=== PATIENT | female | born 1990 | race Two or more races ===

== ENCOUNTER 2021-10-21 17:44 | Inpatient (IN) | payer MEDICAID ==
[~2021-10-21] VITALS: Ht 167.6 cm; Wt 180.1 kg
[2021-10-21] MEDS ORDERED: NITROGLYCERIN 50MG PREMIX 250 ML IV ONE (18:00)
[2021-10-21] MEDS ORDERED: FUROSEMIDE 100MG/10ML VIAL IVP ONE (18:00)
[2021-10-21 18:50] LABS: BASOPHILS % 0.9 % (0.0-2.0); CHLORIDE 106 mEq/L (98-107); EOSINOPHILS % 5.8 % (0.0-5.0); HEMATOCRIT. 39.4 % (36.0-48.0); HEMOGLOBIN. 11.9 g/dL (12.0-16.0); LYMPHOCYTES % 17.9 % (20.0-50.0); MEAN CORPUSCULAR HEMOGLOBIN 25.5 pg (28.0-32.0); MEAN CORPUSCULAR VOLUME 84.1 fL (81.0-99.0); MEAN PLATELET VOLUME 9.9 fl (7.4-10.4); MONOCYTES % 7.5 % (2.0-8.0); NEUTROPHILS % 67.9 % (40.0-76.0); PLATELET 166 x1000/uL (130-400); RED BLOOD CELL COUNT 4.69 mill/uL (4.2-5.4); RED CELL DISTRIBUTION WIDTH 15.1 % (11.6-14.6)
[2021-10-21] MEDS ORDERED: CLONIDINE 0.3MG TABLET PO ONE (20:45)
[2021-10-21] MEDS ORDERED: ACETAMINOPHEN 325MG TABLET PO PRN ×2 (21:45)
[2021-10-21] MEDS ORDERED: MAGNESIUM/ALUMINUM HYDROXIDE/SIMETHICONE 30ML UDC PO PRN (21:45)
[2021-10-21] MEDS ORDERED: DOCUSATE SODIUM 100MG CAPSULE PO PRN (21:45)
[2021-10-21] MEDS ORDERED: ENOXAPARIN 40MG/0.4ML SYR SUBCUT SCH (21:45)
[2021-10-21] MEDS ORDERED: LORAZEPAM 0.5MG TABLET PO PRN (21:45)
[2021-10-21] MEDS ORDERED: NITROGLYCERIN 0.4MG TABLET SL SL PRN (21:45)
[2021-10-21] MEDS ORDERED: ONDANSETRON HCL 4MG/2ML INJ IV PRN (21:45)
[2021-10-21] MEDS ORDERED: GUAIFENESIN 200MG/10ML SUGAR FREE UDC PO PRN (21:45)
[2021-10-21] MEDS ORDERED: IPRATROPIUM/ALBUTEROL 0.5-3(2.5)MG/3ML NEB NEB PRN (21:45)
[2021-10-21] MEDS ORDERED: CLONIDINE 0.1MG TABLET PO PRN (21:45)
[2021-10-21] MEDS ORDERED: ACETAMINOPHEN 325MG TABLET PO ONE (22:00)
[2021-10-21] MEDS ORDERED: TRAMADOL 50MG TABLET PO ONE (22:00)
[2021-10-21 22:09] LABS: FOLIC ACID (FOLATE) SERUM 15.3 ng/mL (>5.38)
[2021-10-21] MEDS: LISINOPRIL 20MG TABLET PO SCH ×2 (22:28→23:04)
[2021-10-21] MEDS: HYDRALAZINE HCL 50MG TABLET PO SCH ×2 (22:29→23:34)
[2021-10-21 23:36] LABS: ETHANOL BLOOD < 10 mg/dL
[2021-10-21 23:38] LABS: TOTAL IRON BINDING CAPACITY 486 ug/dL (250-450)
[2021-10-21 23:41] LABS: CREATINE KINASE 110 IU/L (26-192)
[2021-10-21 23:42] LABS: CREATINE KINASE MB FRACTION 1.6 ng/mL (0.5-3.6)
[2021-10-21] MEDS ORDERED: HYDRALAZINE 20MG/ML VIAL IV ONE (23:45)
[2021-10-21] MEDS ORDERED: MORPHINE SULFATE 4 MG/ML CPJ (NOT FOR IM USE) IV ONE (23:45)
[2021-10-22 04:15] LABS: BASOPHILS % 0.4 % (0.0-2.0); EOSINOPHILS % 3.5 % (0.0-5.0); HEMATOCRIT. 38.8 % (36.0-48.0); HEMOGLOBIN. 12.2 g/dL (12.0-16.0); LYMPHOCYTES % 13.9 % (20.0-50.0); MEAN PLATELET VOLUME 9.8 fl (7.4-10.4); MONOCYTES % 7.2 % (2.0-8.0); PLATELET 245 x1000/uL (130-400); RED BLOOD CELL COUNT 4.68 mill/uL (4.2-5.4); RED CELL DISTRIBUTION WIDTH 15.1 % (11.6-14.6)
[2021-10-22 04:17] LABS: CHLORIDE 105 mEq/L (98-107)
[2021-10-22 04:24] LABS: PHOSPHORUS 6.1 mg/dL (2.5-4.9)
[2021-10-22 04:27] LABS: CREATINE KINASE 100 IU/L (26-192)
[2021-10-22 05:10] LABS: CREATINE KINASE MB FRACTION 1.4 ng/mL (0.5-3.6)
[2021-10-22] MEDS: AMLODIPINE 10MG TABLET PO SCH ×2 (05:23→09:49)
[2021-10-22] MEDS: NITROGLYCERIN OINT 1GM/INCH UDPKT TD SCH ×4 (05:24→22:00)
[2021-10-22] MEDS: HYDRALAZINE HCL 50MG TABLET PO SCH ×3 (06:38→22:00)
[2021-10-22 08:00] VITALS: BP 123/64
[2021-10-22] MEDS: FUROSEMIDE 40MG/4ML VIAL IVP SCH ×2 (09:48→20:44)
[2021-10-22] MEDS: FAMOTIDINE 20MG TABLET PO SCH ×2 (09:48→20:38)
[2021-10-22] MEDS: ENOXAPARIN 40MG/0.4ML SYR SUBCUT SCH ×2 (09:48→20:39)
[2021-10-22] MEDS: LISINOPRIL 20MG TABLET PO SCH ×2 (09:48→20:39)
[2021-10-22] MEDS: ASPIRIN 325MG EC TABLET PO SCH (09:49)
[2021-10-22] MEDS: SPIRONOLACTONE 25MG TABLET PO SCH ×2 (09:49→20:38)
[2021-10-22 10:21] VITALS: BP 123/64
[2021-10-22] MEDS ORDERED: INFLUENZA VACCINE 05/PF 0.5 ML SYRINGE IM ONE (11:30)
[2021-10-22] MEDS ORDERED: PNEUMOCOCCAL 23-VAL P-SAC VAC 0.5 ML IM ONE (11:30)
[2021-10-22 11:31] VITALS: BP 138/77
[2021-10-22 16:00] VITALS: BP 145/77
[2021-10-22 20:00] VITALS: BP 114/59
[2021-10-23 00:01] VITALS: BP 138/65
[2021-10-23 04:00] VITALS: BP 123/62
[2021-10-23] MEDS: NITROGLYCERIN OINT 1GM/INCH UDPKT TD SCH ×3 (05:30→21:06)
[2021-10-23] MEDS: HYDRALAZINE HCL 50MG TABLET PO SCH ×3 (05:30→21:06)
[2021-10-23 08:10] VITALS: BP 136/72
[2021-10-23] MEDS: FAMOTIDINE 20MG TABLET PO SCH ×2 (09:23→21:06)
[2021-10-23] MEDS: LISINOPRIL 20MG TABLET PO SCH ×2 (09:23→21:06)
[2021-10-23] MEDS: AMLODIPINE 10MG TABLET PO SCH (09:23)
[2021-10-23] MEDS: ASPIRIN 325MG EC TABLET PO SCH (09:23)
[2021-10-23] MEDS: ENOXAPARIN 40MG/0.4ML SYR SUBCUT SCH ×2 (09:24→21:05)
[2021-10-23] MEDS: FUROSEMIDE 40MG/4ML VIAL IVP SCH ×2 (09:24→21:05)
[2021-10-23] MEDS: SPIRONOLACTONE 25MG TABLET PO SCH ×2 (09:24→21:06)
[2021-10-23 12:25] VITALS: BP 125/68
[2021-10-23 16:00] VITALS: BP 122/64
[2021-10-23 20:00] VITALS: BP 133/72
[2021-10-24] VITALS (7 sets, daily range): BP systolic 112–144; BP diastolic 67–90
[2021-10-24] MEDS: ZOLPIDEM TARTRATE 5MG TABLET PO PRN ×2 (01:09→22:00)
[2021-10-24] MEDS: HYDRALAZINE HCL 50MG TABLET PO SCH ×3 (06:59→21:59)
[2021-10-24] MEDS: NITROGLYCERIN OINT 1GM/INCH UDPKT TD SCH ×3 (07:00→21:59)
[2021-10-24] MEDS: FUROSEMIDE 40MG/4ML VIAL IVP SCH ×2 (09:11→22:00)
[2021-10-24] MEDS: AMLODIPINE 10MG TABLET PO SCH (09:12)
[2021-10-24] MEDS: SPIRONOLACTONE 25MG TABLET PO SCH ×2 (09:12→22:00)
[2021-10-24] MEDS: ASPIRIN 325MG EC TABLET PO SCH (09:12)
[2021-10-24] MEDS: FAMOTIDINE 20MG TABLET PO SCH ×2 (09:12→22:00)
[2021-10-24] MEDS: ENOXAPARIN 40MG/0.4ML SYR SUBCUT SCH ×2 (09:13→22:02)
[2021-10-24] MEDS: LISINOPRIL 20MG TABLET PO SCH ×2 (09:13→22:00)
[2021-10-24] MEDS ORDERED: METOLAZONE 10MG TABLET PO SCH (10:45)
[2021-10-25] VITALS: BP 145/86
[2021-10-25 04:00] VITALS: BP 132/77
[2021-10-25] MEDS: NITROGLYCERIN OINT 1GM/INCH UDPKT TD SCH (05:24)
[2021-10-25] MEDS: HYDRALAZINE HCL 50MG TABLET PO SCH (05:24)
[2021-10-25 07:29] LABS: CHLORIDE 98 mEq/L (98-107)
[2021-10-25 07:53] LABS: BASOPHILS % 0.6 % (0.0-2.0); HEMATOCRIT. 41.3 % (36.0-48.0); HEMOGLOBIN. 13.4 g/dL (12.0-16.0); LYMPHOCYTES % 13.9 % (20.0-50.0); MEAN CORPUSCULAR HEMOGLOBIN 26.5 pg (28.0-32.0); MEAN CORPUSCULAR VOLUME 81.8 fL (81.0-99.0); MONOCYTES % 9.6 % (2.0-8.0); NEUTROPHILS % 69.9 % (40.0-76.0); PLATELET 274 x1000/uL (130-400); RED BLOOD CELL COUNT 5.05 mill/uL (4.2-5.4); RED CELL DISTRIBUTION WIDTH 14.7 % (11.6-14.6)
[2021-10-25 07:54] LABS: PHOSPHORUS 5.7 mg/dL (2.5-4.9)
[2021-10-25 08:00] VITALS: BP 130/74
[2021-10-25] MEDS: ASPIRIN 325MG EC TABLET PO SCH (08:37)
[2021-10-25] MEDS: AMLODIPINE 10MG TABLET PO SCH (08:37)
[2021-10-25] MEDS: LISINOPRIL 20MG TABLET PO SCH (08:37)
[2021-10-25] MEDS: FUROSEMIDE 40MG/4ML VIAL IVP SCH (08:37)
[2021-10-25] MEDS: FAMOTIDINE 20MG TABLET PO SCH (08:37)
[2021-10-25] MEDS: SPIRONOLACTONE 25MG TABLET PO SCH (08:38)
[2021-10-25] MEDS: ENOXAPARIN 40MG/0.4ML SYR SUBCUT SCH (08:38)
[2021-10-25 11:09] VITALS: BP 131/75
[2021-10-25 11:41] VITALS: BP 128/72
[2021-10-25 13:13] VITALS: BP 128/72
== END 2021-10-25 18:55 | disposition home or self-care (01) | DRG 199 ==
LOC: ER 17:44 → MICUSO 20:36 → EDBEDREQ 20:46 → EDBEDREQTM 20:46 → 6WST 10-22 09:28
PROVIDERS: ADMIT Internal Medicine; ATTEND Internal Medicine
DX: I16.1 Hypertensive emergency (principal); J96.01 Acute respiratory failure with hypoxia; I50.33 Acute on chronic diastolic (congestive) heart failure; E44.1 Mild protein-calorie malnutrition; D63.8 Anemia in other chronic diseases classified elsewhere; E83.51 Hypocalcemia; Z68.44 Body mass index [BMI] 60.0-69.9, adult; I11.0 Hypertensive heart disease with heart failure; J44.9 Chronic obstructive pulmonary disease, unspecified; E66.01 Morbid (severe) obesity due to excess calories; Z88.0 Allergy status to penicillin
CPT/HCPCS: 36415; 71045; 80053; 80320; 82550; 82553; 82607; 82746; 83540; 83550; 83735; 83880; 84100; 84484; 85025; 90686; 90732; 93005; 93306; 93970; 97166; 99291; J1650; J1940; J2270; J3490; G0480

== ENCOUNTER 2022-11-20 21:46 | Inpatient (IN) | payer MEDICAID ==
[~2022-11-20] VITALS: Ht 167.6 cm; Wt 200.0 kg
[2022-11-20] MEDS ORDERED: FUROSEMIDE 40MG/4ML VIAL IVP ONE (23:00)
[2022-11-20 23:09] LABS: BASOPHILS % 0.7 % (0.0-2.0); EOSINOPHILS % 4.9 % (0.0-5.0); HEMATOCRIT. 35.5 % (36.0-48.0); HEMOGLOBIN. 11.3 g/dL (12.0-16.0); LYMPHOCYTES % 16.9 % (20.0-50.0); MEAN CORPUSCULAR HEMOGLOBIN 24.7 pg (28.0-32.0); MEAN CORPUSCULAR VOLUME 77.5 fL (81.0-99.0); MEAN PLATELET VOLUME 10.4 fl (7.4-10.4); MONOCYTES % 9.6 % (2.0-8.0); NEUTROPHILS % 67.9 % (40.0-76.0); PLATELET 164 x1000/uL (130-400); RED BLOOD CELL COUNT 4.58 mill/uL (4.2-5.4); RED CELL DISTRIBUTION WIDTH 18.4 % (11.6-14.6)
[2022-11-20 23:31] LABS: CHLORIDE 104 mEq/L (98-107)
[2022-11-21] MEDS ORDERED: ASPIRIN 325MG TABLET PO ONE
[2022-11-21] MEDS ORDERED: NA PHOS,M-B/NA PHOS,DI-BA ENEMA 118ML PR PRN
[2022-11-21] MEDS ORDERED: GUAIFENESIN 200MG/10ML SUGAR FREE UDC PO PRN
[2022-11-21] MEDS ORDERED: IPRATROPIUM/ALBUTEROL 0.5-3(2.5)MG/3ML NEB NEB PRN
[2022-11-21] MEDS ORDERED: ACETAMINOPHEN 325MG TABLET PO PRN ×2
[2022-11-21] MEDS ORDERED: ZOLPIDEM TARTRATE 5MG TABLET PO PRN
[2022-11-21] MEDS ORDERED: ONDANSETRON HCL 4MG/2ML INJ IV PRN
[2022-11-21] MEDS ORDERED: MAGNESIUM/ALUMINUM HYDROXIDE/SIMETHICONE 30ML UDC PO PRN
[2022-11-21] MEDS ORDERED: DOCUSATE SODIUM 100MG CAPSULE PO PRN
[2022-11-21] MEDS ORDERED: CLONIDINE 0.1MG TABLET PO PRN
[2022-11-21] MEDS ORDERED: NITROGLYCERIN 0.4MG TABLET SL SL PRN
[2022-11-21] MEDS ORDERED: KETOROLAC 30MG/ML VIAL IV PRN
[2022-11-21] MEDS ORDERED: IPRATROPIUM BROMIDE (0.02%) 0.5MG/2.5ML NEB HHN STA (00:16)
[2022-11-21] MEDS ORDERED: ALBUTEROL (0.083%) 2.5MG/3ML NEB HHN STA (00:16)
[2022-11-21] MEDS ORDERED: METHYLPREDNISOLONE SOD SUCC 125 MG/2 ML VIAL IV ONE (00:30)
[2022-11-21 01:58] LABS: ETHANOL BLOOD < 10 mg/dL; HDL CHOLESTEROL 23 mg/dL (40-59); LDL CHOLESTEROL 97 mg/dL (5-100); T4 FREE 1.13 ng/dL (0.76-1.46); TOTAL IRON BINDING CAPACITY 439 ug/dL (250-450)
[2022-11-21 02:23] LABS: VITAMIN B12 SERUM 406 pg/mL (211-911)
[2022-11-21] MEDS: METHYLPREDNISOLONE SOD SUCC 40 MG/ML VIAL IV SCH ×3 (04:10→21:14)
[2022-11-21 04:57] LABS: CHLORIDE 104 mEq/L (98-107)
[2022-11-21 05:00] LABS: BASOPHILS % 0.3 % (0.0-2.0); EOSINOPHILS % 0.4 % (0.0-5.0); HEMATOCRIT. 39.4 % (36.0-48.0); HEMOGLOBIN. 12.5 g/dL (12.0-16.0); MEAN CORPUSCULAR HEMOGLOBIN 24.6 pg (28.0-32.0); MEAN CORPUSCULAR VOLUME 77.5 fL (81.0-99.0); MEAN PLATELET VOLUME 9.7 fl (7.4-10.4); MONOCYTES % 2.9 % (2.0-8.0); NEUTROPHILS % 83.4 % (40.0-76.0); PLATELET 175 x1000/uL (130-400); RED BLOOD CELL COUNT 5.08 mill/uL (4.2-5.4); RED CELL DISTRIBUTION WIDTH 18.3 % (11.6-14.6)
[2022-11-21 05:06] LABS: PHOSPHORUS 4.4 mg/dL (2.5-4.9)
[2022-11-21] MEDS: SPIRONOLACTONE 25MG TABLET PO SCH ×2 (05:35→18:44)
[2022-11-21 06:46] LABS: CREATINE KINASE 234 IU/L (26-192); CREATINE KINASE MB FRACTION < 1.0 ng/mL (0.5-3.6)
[2022-11-21 09:16] LABS: BG BASE EXCESS -3.6 mmol/L (-2.0-2.0); BG CARBOXYHEMOGLOBIN 1.7 % (0.5-1.5); BG DEOXYHEMOGLOBIN 2.8 % (0.0-5.0); BG FRACTION INSPIRED OXYGEN 40; BG METHEMOGLOBIN 0.3 % (0.0-1.5); BG OXYGEN SATURATION 97.1 % (92.0-98.5); BG OXYHEMOGLOBIN 95.2 % (94.0-97.0); BG PCO2 47.4 mmHg (35.0-45.0); BG PH 7.303 (7.350-7.450); BG PO2 96.3 mmHg (75.0-100.0); BG SAMPLE SITE RIGHT RADIAL; BG TOTAL HEMOGLOBIN 12.8 g/dL (12.0-18.0); BG VENT MODE MASK - BIPAP
[2022-11-21] MEDS: FAMOTIDINE 20MG TABLET PO SCH ×2 (09:23→21:14)
[2022-11-21] MEDS: ASPIRIN 325MG EC TABLET PO SCH (09:24)
[2022-11-21] MEDS: LISINOPRIL 20MG TABLET PO SCH ×2 (09:24→21:15)
[2022-11-21] MEDS: ENOXAPARIN 40MG/0.4ML SYR SUBCUT SCH ×2 (09:25→21:15)
[2022-11-21] MEDS: GUAIFENESIN 600MG ER TABLET PO SCH ×2 (09:25→21:15)
[2022-11-21 10:23] LABS: *AMPHETAMINES SCREEN URINE NEGATIVE (NEGATIVE); *BARBITURATES SCREEN URINE NEGATIVE (NEGATIVE); *BENZODIAZEPINES SCREEN URINE NEGATIVE (NEGATIVE); *COCAINE SCREEN URINE NEGATIVE (NEGATIVE); CANNABINOID URINE SCREEN NEGATIVE (NEGATIVE); METHADONE URINE SCREEN NEGATIVE (NEGATIVE); OPIATES URINE SCREEN NEGATIVE (NEGATIVE); PHENCYCLIDINE URINE SCREEN NEGATIVE (NEGATIVE)
[2022-11-21 12:00] VITALS: BP_SYST 148; BP_SYST 153; BP_DIAS 87; BP_DIAS 99
[2022-11-21] MEDS: IPRATROPIUM/ALBUTEROL 0.5-3(2.5)MG/3ML NEB HHN SCH ×2 (12:12→21:21)
[2022-11-21] MEDS: FUROSEMIDE 40MG/4ML VIAL IVP SCH ×2 (12:15)
[2022-11-21 13:00] VITALS: BP 153/100
[2022-11-21 16:00] VITALS: BP 147/88
[2022-11-21 17:21] LABS: CREATINE KINASE 211 IU/L (26-192); CREATINE KINASE MB FRACTION < 1.0 ng/mL (0.5-3.6)
[2022-11-21 18:00] VITALS: BP 129/69
[2022-11-21 20:00] VITALS: BP 158/93
[2022-11-21 22:00] VITALS: BP 163/105
[2022-11-22] VITALS (13 sets, daily range): BP systolic 123–164; BP diastolic 59–101
[2022-11-22] MEDS: FUROSEMIDE 40MG/4ML VIAL IVP SCH ×2 (01:11→12:04)
[2022-11-22] MEDS: IPRATROPIUM/ALBUTEROL 0.5-3(2.5)MG/3ML NEB HHN SCH ×4 (02:47→20:03)
[2022-11-22] MEDS: METHYLPREDNISOLONE SOD SUCC 40 MG/ML VIAL IV SCH ×3 (05:03→21:15)
[2022-11-22] MEDS: SPIRONOLACTONE 25MG TABLET PO SCH ×2 (05:04→17:11)
[2022-11-22 07:23] LABS: BASOPHILS % 0.2 % (0.0-2.0); EOSINOPHILS % 0.2 % (0.0-5.0); HEMATOCRIT. 36.9 % (36.0-48.0); HEMOGLOBIN. 11.8 g/dL (12.0-16.0); LYMPHOCYTES % 14.5 % (20.0-50.0); MEAN CORPUSCULAR HEMOGLOBIN 24.8 pg (28.0-32.0); MEAN CORPUSCULAR VOLUME 77.6 fL (81.0-99.0); MEAN PLATELET VOLUME 10.7 fl (7.4-10.4); MONOCYTES % 6.6 % (2.0-8.0); NEUTROPHILS % 78.5 % (40.0-76.0); PLATELET 161 x1000/uL (130-400); RED BLOOD CELL COUNT 4.75 mill/uL (4.2-5.4); RED CELL DISTRIBUTION WIDTH 17.9 % (11.6-14.6)
[2022-11-22 07:51] LABS: CHLORIDE 105 mEq/L (98-107)
[2022-11-22 08:00] LABS: PHOSPHORUS 3.7 mg/dL (2.5-4.9)
[2022-11-22] MEDS: GUAIFENESIN 600MG ER TABLET PO SCH ×2 (09:58→21:13)
[2022-11-22] MEDS: ASPIRIN 325MG EC TABLET PO SCH (09:59)
[2022-11-22] MEDS: FAMOTIDINE 20MG TABLET PO SCH ×2 (09:59→21:13)
[2022-11-22] MEDS: LISINOPRIL 20MG TABLET PO SCH ×2 (10:00→21:14)
[2022-11-22] MEDS: ENOXAPARIN 40MG/0.4ML SYR SUBCUT SCH ×2 (10:11→21:14)
[2022-11-23] VITALS (8 sets, daily range): BP systolic 138–160; BP diastolic 78–97
[2022-11-23] MEDS: FUROSEMIDE 40MG/4ML VIAL IVP SCH ×2 (01:02→12:05)
[2022-11-23] MEDS: IPRATROPIUM/ALBUTEROL 0.5-3(2.5)MG/3ML NEB HHN SCH ×2 (01:21→09:34)
[2022-11-23] MEDS: METHYLPREDNISOLONE SOD SUCC 40 MG/ML VIAL IV SCH ×2 (03:37→12:05)
[2022-11-23 06:31] LABS: BASOPHILS % 0.1 % (0.0-2.0); HEMATOCRIT. 37.1 % (36.0-48.0); HEMOGLOBIN. 11.8 g/dL (12.0-16.0); LYMPHOCYTES % 13.1 % (20.0-50.0); MEAN CORPUSCULAR HEMOGLOBIN 24.7 pg (28.0-32.0); MEAN CORPUSCULAR VOLUME 77.5 fL (81.0-99.0); MEAN PLATELET VOLUME 10.3 fl (7.4-10.4); MONOCYTES % 5.8 % (2.0-8.0); PLATELET 158 x1000/uL (130-400); RED BLOOD CELL COUNT 4.79 mill/uL (4.2-5.4); RED CELL DISTRIBUTION WIDTH 17.8 % (11.6-14.6)
[2022-11-23] MEDS: SPIRONOLACTONE 25MG TABLET PO SCH (06:44)
[2022-11-23 07:33] LABS: CHLORIDE 104 mEq/L (98-107)
[2022-11-23] MEDS ORDERED: FURO-151 MT (08:21)
[2022-11-23] MEDS ORDERED: P20 MT (08:21)
[2022-11-23] MEDS ORDERED: ALBU6.7H3 INH (08:21)
[2022-11-23] MEDS ORDERED: LISI20TA31 PO (08:21)
[2022-11-23] MEDS ORDERED: SPIR25TA PO (08:21)
[2022-11-23] MEDS: FAMOTIDINE 20MG TABLET PO SCH (08:25)
[2022-11-23] MEDS: GUAIFENESIN 600MG ER TABLET PO SCH (08:25)
[2022-11-23] MEDS: ASPIRIN 325MG EC TABLET PO SCH (08:25)
[2022-11-23] MEDS: LISINOPRIL 20MG TABLET PO SCH (08:25)
[2022-11-23] MEDS: ENOXAPARIN 40MG/0.4ML SYR SUBCUT SCH (08:26)
[2022-11-23 10:36] LABS: BG BASE EXCESS 4.8 mmol/L (-2.0-2.0); BG CARBOXYHEMOGLOBIN 0.3 % (0.5-1.5); BG DEOXYHEMOGLOBIN 6.9 % (0.0-5.0); BG FRACTION INSPIRED OXYGEN 34; BG HCO3 ACT 31.3 mmol/L (22.0-26.0); BG METHEMOGLOBIN 0.1 % (0.0-1.5); BG OXYGEN SATURATION 93.1 % (92.0-98.5); BG OXYHEMOGLOBIN 92.7 % (94.0-97.0); BG PCO2 54.8 mmHg (35.0-45.0); BG PH 7.375 (7.350-7.450); BG PO2 68.5 mmHg (75.0-100.0); BG SAMPLE SITE RIGHT RADIAL; BG VENT MODE NASAL CANNULA
== END 2022-11-23 14:30 | disposition home or self-care (01) | DRG 133 ==
LOC: ER 21:46 → MICUSO 23:02 → 5EST 11-21 10:38
PROVIDERS: ADMIT Internal Medicine; ATTEND Internal Medicine
PROC: 5A09357 Assistance with Respiratory Ventilation, Less than 24 Consecutive Hours, Continuous Positive Airway Pressure (ICD-10-PCS; principal; 2022-11-20)
PROC: 5A09357 Assistance with Respiratory Ventilation, Less than 24 Consecutive Hours, Continuous Positive Airway Pressure (ICD-10-PCS; 2022-11-21)
PROC: 5A09357 Assistance with Respiratory Ventilation, Less than 24 Consecutive Hours, Continuous Positive Airway Pressure (ICD-10-PCS; 2022-11-22)
DX: J96.21 Acute and chronic respiratory failure with hypoxia (principal); R65.11 Systemic inflammatory response syndrome (SIRS) of non-infectious origin with acute organ dysfunction; I26.99 Other pulmonary embolism without acute cor pulmonale; I50.33 Acute on chronic diastolic (congestive) heart failure; E44.0 Moderate protein-calorie malnutrition; Z68.45 Body mass index [BMI] 70 or greater, adult; I24.9 Acute ischemic heart disease, unspecified; I11.0 Hypertensive heart disease with heart failure; E66.01 Morbid (severe) obesity due to excess calories; J44.1 Chronic obstructive pulmonary disease with (acute) exacerbation; Z20.822 Contact with and (suspected) exposure to COVID-19; D50.9 Iron deficiency anemia, unspecified; G47.33 Obstructive sleep apnea (adult) (pediatric); R73.03 Prediabetes; Z79.899 Other long term (current) drug therapy; Z79.82 Long term (current) use of aspirin; Z88.0 Allergy status to penicillin; Z99.81 Dependence on supplemental oxygen
CPT/HCPCS: 36415; 36600; 71045; 80048; 80053; 80061; 80305; 80320; 82375; 82550; 82553; 82607; 82746; 82805; 83036; 83540; 83550; 83735; 83880; 84100; 84439; 84443; 84484; 85025; 85379; 87426; 87804; 93005; 93306; 93970; 94640; 94660; 99291; J1650; J1940; J2920; J2930; G0480